=== PATIENT | female | born 1940 | race Caucasian/White ===

== ENCOUNTER 2025-07-20 10:18 | Outpatient (CLI) | payer MEDICARE | END 2025-07-20 10:19 | disposition home or self-care (01) | LOC: CSHULT 10:18 | PROVIDERS: ATTEND Specialist | DX: Z08 Encounter for follow-up examination after completed treatment for malignant neoplasm (principal); Z85.3 Personal history of malignant neoplasm of breast | CPT/HCPCS: 77065; G0279 ==